=== PATIENT | female | born 1995 | race Caucasian/White ===

== ENCOUNTER 2020-05-19 10:01 | Outpatient (CLI) | payer OTHER ==
[~2020-05-19] VITALS: Ht 162.6 cm; Wt 101.8 kg
[2020-05-19 10:24] VITALS: BP 132/79
[2020-05-19 10:37] LABS: BASOPHILS % (AUTO) 0 % (0-1); EOSINOPHILS % (AUTO) 0 % (1-7); LYMPHOCYTES % (AUTO) 14 % (22-44); MEAN CORPUSCULAR HEMOGLOBIN 30.8 pg (27.0-34.8); MEAN CORPUSCULAR HGB CONC 34.3 g/dL (32.4-35.8); MEAN PLATELET VOLUME 9.3 fL (7.4-10.4); MONOCYTES % (AUTO) 7 % (2-9); NEUTROPHILS % (AUTO) 79 % (42-75); PLATELET COUNT 203 x10^3/uL (130-400); RED BLOOD COUNT 4.09 x10^6/uL (3.82-5.3)
[2020-05-19 10:40] LABS: MD NO
[2020-05-19 10:42] LABS: MICROSCOPIC INDICATED
[2020-05-19 10:49] LABS: CREATININE,URINE RANDOM 33.9 mg/dL
[2020-05-19 10:52] LABS: ALBUMIN 2.7 g/dL (3.4-5.0); ANION GAP 8 mmol/L (5-15); CHLORIDE 109 mmol/L (98-107)
[2020-05-19 11:03] LABS: ALANINE AMINOTRANSFERASE 17 U/L (12-78); ALKALINE PHOSPHATASE 167 U/L (45-117); BILIRUBIN, DIRECT < 0.1 mg/dL (0.1-0.2); BILIRUBIN,TOTAL 0.2 mg/dL (0.2-1.0); CREATININE 0.71 mg/dL (0.55-1.02); TOTAL PROTEIN 7.2 g/dL (6.4-8.2)
[2020-05-19] MEDS ORDERED: PREN1TAB10 PO (11:10)
== END 2020-05-19 11:35 | disposition home or self-care (01) ==
LOC: LDOP 10:01
PROVIDERS: ATTEND Student in an Organized Health Care Education/Training Program
DX: O16.3 Unspecified maternal hypertension, third trimester (principal); Z3A.35 35 weeks gestation of pregnancy
CPT/HCPCS: 36415; 59025; 80053; 81001; 82248; 82570; 84156; 84550; 85025; 99211; G0463

== ENCOUNTER 2020-05-26 11:34 | Inpatient (IN) | payer OTHER ==
[~2020-05-26] VITALS: Ht 162.6 cm; Wt 101.8 kg
[~2020-05-26 11:34] MED LIST: PREN1TAB10 PO
[2020-05-27] MEDS ORDERED: TERBUTALINE 1 MG/ML, 1ML SQ PRN
[2020-05-27] MEDS ORDERED: CALCIUM CARBONATE 500 MG TAB.CHEW PO PRN
[2020-05-27] MEDS ORDERED: MISOPROSTOL 25 MCG TABLET VG PRN
[2020-05-27] MEDS ORDERED: TERBUTALINE 1 MG/ML, 1ML IVPush PRN
[2020-05-27] MEDS ORDERED: OXYTOCIN 30U/ 0.9% NaCL 500ML 500 ML IV ONE
[2020-05-27] MEDS ORDERED: D5%-LACTATED RINGERS 1,000 ML IV SCH
[2020-05-27] MEDS ORDERED: DIPHENHYDRAMINE 50 MG/ML, 1ML IM ONE
[2020-05-27] MEDS ORDERED: MISOPROSTOL 200 MCG TABLET ONE (00:08)
[2020-05-27] MEDS ORDERED: LIDOCAINE 1%, 20ML ONE (00:08)
[2020-05-27] MEDS ORDERED: NEWBORN KIT ONE (00:08)
[2020-05-27 01:02] LABS: ALBUMIN 2.8 g/dL (3.4-5.0); ANION GAP 10 mmol/L (5-15); CALCIUM 9.3 mg/dL (8.5-10.1); CHLORIDE 109 mmol/L (98-107)
[2020-05-27 01:05] LABS: ALANINE AMINOTRANSFERASE 12 U/L (12-78); ALKALINE PHOSPHATASE 176 U/L (45-117); BILIRUBIN, DIRECT < 0.1 mg/dL (0.1-0.2); BILIRUBIN,TOTAL 0.3 mg/dL (0.2-1.0); CREATININE 0.66 mg/dL (0.55-1.02); TOTAL PROTEIN 7.3 g/dL (6.4-8.2)
[2020-05-27 01:21] LABS: BASOPHILS % (AUTO) 0 % (0-1); EOSINOPHILS % (AUTO) 0 % (1-7); LYMPHOCYTES % (AUTO) 18 % (22-44); MEAN CORPUSCULAR HEMOGLOBIN 30.6 pg (27.0-34.8); MEAN CORPUSCULAR HGB CONC 34.1 g/dL (32.4-35.8); MEAN PLATELET VOLUME 9.8 fL (7.4-10.4); MONOCYTES % (AUTO) 6 % (2-9); NEUTROPHILS % (AUTO) 76 % (42-75); PLATELET COUNT 202 x10^3/uL (130-400); RED BLOOD COUNT 4.06 x10^6/uL (3.82-5.3); RED CELL DISTRIBUTION WIDTH 13.8 % (9.6-15.2)
[2020-05-27 01:24] LABS: MD NO
[2020-05-27] MEDS ORDERED: MISOPROSTOL 25 MCG TABLET ONE (02:02)
[2020-05-27 03:13] LABS: MICROSCOPIC INDICATED
[2020-05-27 03:28] LABS: CREATININE,URINE RANDOM 52.6 mg/dL
[2020-05-27] MEDS ORDERED: OXYTOCIN 30U/ 0.9% NaCL 500ML 500 ML ONE ×2 (07:19→22:44)
[2020-05-27] MEDS ORDERED: FENTANYL PF 100 MCG/2ML ONE ×3 (11:54→22:42)
[2020-05-27] MEDS: FENTANYL PF 100 MCG/2ML IVPush PRN ×2 (11:57→13:52)
[2020-05-27] MEDS: LACTATED RINGERS 1,000 ML IV SCH ×3 (11:57→16:00)
[2020-05-27] MEDS ORDERED: BUPIVACAINE 0.25% ONE (14:43)
[2020-05-27] MEDS ORDERED: FENTANYL/BUPIV./NS/PF 250 ML EPIDCONT ONE (14:43)
[2020-05-27] MEDS ORDERED: FENTANYL/BUPIV./NS/PF 250 ML EPIDCONT SCH (15:30)
[2020-05-27] MEDS ORDERED: EPHEDRINE 50 MG/ML, 1ML IVPush PRN (15:30)
[2020-05-27] MEDS ORDERED: LACTATED RINGERS 1,000 ML IV SCH (15:30)
[2020-05-27] MEDS ORDERED: NALOXONE 0.4 MG/ML, 1ML IVPush PRN (15:30)
[2020-05-27] MEDS ORDERED: DIPHENHYDRAMINE 50 MG/ML, 1ML IVPush PRN (15:30)
[2020-05-27] MEDS ORDERED: LACTATED RINGERS 1,000 ML IVBOLUS PRN (15:30)
[2020-05-27] MEDS ORDERED: ONDANSETRON 2MG/ML, 2ML IVPush PRN ×2 (15:30)
[2020-05-27] MEDS ORDERED: ONDANSETRON 2MG/ML, 2ML ONE (21:51)
[2020-05-27] MEDS: FENTANYL PF 100 MCG/2ML IV PRN ×2 (22:45→23:00)
[2020-05-27] MEDS: OXYTOCIN 30U/ 0.9% NaCL 500ML 500 ML IV SCH (22:52)
[2020-05-27] MEDS ORDERED: TRANEXAMIC ACID 100 MG/ML, 10ML ONE (23:08)
[2020-05-28] MEDS ORDERED: OXYTOCIN 30U/ 0.9% NaCL 500ML 500 ML ONE (00:28)
[2020-05-28] MEDS ORDERED: IBUPROFEN 600 MG TABLET ONE (00:42)
[2020-05-28] MEDS: IBUPROFEN 600 MG TABLET PO PRN ×4 (00:49→22:14)
[2020-05-28] MEDS ORDERED: MISOPROSTOL 200 MCG TABLET PR PRN (01:00)
[2020-05-28] MEDS ORDERED: SIMETHICONE 80 MG CHEW TAB PO PRN (01:00)
[2020-05-28] MEDS ORDERED: ONDANSETRON 2MG/ML, 2ML IV PRN (01:00)
[2020-05-28] MEDS ORDERED: TRANEXAMIC ACID 1,000 MG in SODIUM CHLORIDE 0.9% 100 ML IVPB ONE (01:00)
[2020-05-28 02:00] VITALS: BP 116/80
[2020-05-28] MEDS: HYDROcodone/APAP 5/325 TABLET PO PRN ×4 (03:38→22:14)
[2020-05-28 04:04] VITALS: BP 119/78
[2020-05-28] MEDS: LACTATED RINGERS 1,000 ML IV SCH ×3 (05:20→16:00)
[2020-05-28] MEDS: OXYTOCIN 30U/ 0.9% NaCL 500ML 500 ML IV SCH (05:20)
[2020-05-28 07:13] LABS: BASOPHILS % (AUTO) 0 % (0-1); EOSINOPHILS % (AUTO) 0 % (1-7); LYMPHOCYTES % (AUTO) 10 % (22-44); MEAN CORPUSCULAR HEMOGLOBIN 30.7 pg (27.0-34.8); MEAN CORPUSCULAR HGB CONC 33.6 g/dL (32.4-35.8); MEAN PLATELET VOLUME 9.4 fL (7.4-10.4); MONOCYTES % (AUTO) 6 % (2-9); NEUTROPHILS % (AUTO) 84 % (42-75); PLATELET COUNT 169 x10^3/uL (130-400); RED BLOOD COUNT 2.75 x10^6/uL (3.82-5.3); RED CELL DISTRIBUTION WIDTH 13.9 % (9.6-15.2)
[2020-05-28 07:27] LABS: MD NO
[2020-05-28 07:45] VITALS: BP 109/74
[2020-05-28] MEDS: PRENATAL VIT/IRON/FA 1 EACH TABLET PO SCH (08:08)
[2020-05-28] MEDS: DOCUSATE 100 MG CAPSULE PO PRN ×2 (08:08→22:13)
[2020-05-28 12:00] VITALS: BP 111/77
[2020-05-28 16:30] VITALS: BP 106/68
[2020-05-28 20:00] VITALS: BP 126/77
[2020-05-29] MEDS: HYDROcodone/APAP 5/325 TABLET PO PRN ×2 (05:54→11:54)
[2020-05-29] MEDS: IBUPROFEN 600 MG TABLET PO PRN ×2 (05:54→11:53)
[2020-05-29 07:13] VITALS: BP 112/70
[2020-05-29] MEDS ORDERED: IBUP-1222 PO (07:44)
[2020-05-29] MEDS: PRENATAL VIT/IRON/FA 1 EACH TABLET PO SCH (09:00)
[2020-05-29] MEDS: DOCUSATE 100 MG CAPSULE PO PRN (11:53)
== END 2020-05-29 12:59 | disposition home or self-care (01) | DRG 806 ==
LOC: LDIP 23:55 → 2NW 05-28 01:57
PROVIDERS: ADMIT Student in an Organized Health Care Education/Training Program; ATTEND Student in an Organized Health Care Education/Training Program
PROC: 10907ZC Drainage of Amniotic Fluid, Therapeutic from Products of Conception, Via Natural or Artificial Opening (ICD-10-PCS; 2020-05-26)
PROC: 3E033VJ Introduction of Other Hormone into Peripheral Vein, Percutaneous Approach (ICD-10-PCS; 2020-05-26)
PROC: 3E0P7VZ Introduction of Hormone into Female Reproductive, Via Natural or Artificial Opening (ICD-10-PCS; 2020-05-26)
PROC: 00HU33Z Insertion of Infusion Device into Spinal Canal, Percutaneous Approach (ICD-10-PCS; 2020-05-26)
PROC: 3E0R3BZ Introduction of Anesthetic Agent into Spinal Canal, Percutaneous Approach (ICD-10-PCS; 2020-05-26)
PROC: 0KQM0ZZ Repair Perineum Muscle, Open Approach (ICD-10-PCS; principal; 2020-05-27)
PROC: 10E0XZZ Delivery of Products of Conception, External Approach (ICD-10-PCS; 2020-05-27)
PROC: 4A1HXCZ Monitoring of Products of Conception, Cardiac Rate, External Approach (ICD-10-PCS; 2020-05-27)
DX: O14.14 Severe pre-eclampsia complicating childbirth (principal); O98.42 Viral hepatitis complicating childbirth; Z37.0 Single live birth; O99.354 Diseases of the nervous system complicating childbirth; Z20.822 Contact with and (suspected) exposure to COVID-19; B19.20 Unspecified viral hepatitis C without hepatic coma; E55.9 Vitamin D deficiency, unspecified; O99.284 Endocrine, nutritional and metabolic diseases complicating childbirth; Z3A.37 37 weeks gestation of pregnancy; G43.909 Migraine, unspecified, not intractable, without status migrainosus; O70.1 Second degree perineal laceration during delivery
CPT/HCPCS: 36415; 80053; 81001; 82248; 82570; 84156; 84550; 85025; 86592; 86850; 86900; 87635; G0378; J2405; J3010; J2590; J7120